=== PATIENT | female | born 1985 | race Caucasian/White ===

== ENCOUNTER 2016-12-24 05:08 | Inpatient (IN) | payer SELFPAY ==
[~2016-12-24] VITALS: Ht 165.1 cm; Wt 84.9 kg
[~2016-12-24 05:08] MED LIST: CALC600T5 PO; PREN-39 PO
[2016-12-24 06:00] VITALS: Ht 165.1 cm; Wt 84.9 kg
[2016-12-24 06:01] VITALS: BP 118/76; PULSE 90; RESP 20
[2016-12-24] MEDS: LACTATED RINGER'S 1,000 ML IV SCH ×4 (06:20→20:04)
[2016-12-24] MEDS ORDERED: METHYLERGONOVINE 0.2 MG INJ IM PRN ×2 (06:30→22:00)
[2016-12-24] MEDS ORDERED: CARBOPROST 250 MCG INJ IM PRN ×2 (06:30→22:00)
[2016-12-24] MEDS ORDERED: OXYTOCIN 30 UNITS/LR 500 ML IV SCH ×3 (06:30→12:30)
[2016-12-24] MEDS ORDERED: BUTORPHANOL 2 MG INJ IV PRN (06:30)
[2016-12-24] MEDS ORDERED: IBUPROFEN 600 MG TAB PO PRN (06:30)
[2016-12-24] MEDS ORDERED: LACTATED RINGER'S 1,000 ML IV PRN (06:30)
[2016-12-24] MEDS ORDERED: MISOPROSTOL 200 MCG TAB PR PRN ×2 (06:30→22:00)
[2016-12-24] MEDS ORDERED: AMPICILLIN 2 GM/NS (PMX) 100 ML IV ONE (06:30)
[2016-12-24] MEDS ORDERED: LIDOCAINE 1% (MPF) 30 ML INJ INJ PRN (06:30)
[2016-12-24] MEDS ORDERED: OXYTOCIN 30 UNITS/LR 500 ML IV PRN ×2 (06:30→22:00)
[2016-12-24 06:36] LABS: ADD SCAN DIFF NO
[2016-12-24 06:40] LABS: BASOPHILS % 0.3 % (0.0-2.0); EOSINOPHILS # 0.1 10^3/ul (0.0-0.5); EOSINOPHILS % 0.7 % (0.0-7.0); HEMATOCRIT 34.8 % (37.0-47.0); HEMOGLOBIN 11.4 g/dl (12.0-16.0); LYMPHOCYTES # 2.5 10^3/ul (0.8-2.9); LYMPHOCYTES % 20.3 % (15.0-51.0); MEAN CORPUSCULAR HEMOGLOBIN 27.9 pg (29.0-33.0); MEAN CORPUSCULAR HGB CONC 32.8 g/dl (32.0-37.0); MEAN CORPUSCULAR VOLUME 85.3 fl (82.0-101.0); MEAN PLATELET VOLUME 10.8 fl (7.4-10.4); MONOCYTE # 1.1 10^3/ul (0.3-0.9); MONOCYTES % 8.4 % (0.0-11.0); NEUTROPHIL # 8.5 10^3/ul (1.6-7.5); NEUTROPHILS % 68.1 % (39.0-77.0); PLATELET COUNT 215 10^3/UL (140-415); RED BLOOD COUNT 4.08 10^6/ul (4.20-5.40); RED CELL DISTRIBUTION WIDTH 14.1 % (11.5-14.5); WHITE BLOOD COUNT 12.5 10^3/ul (4.8-10.8)
[2016-12-24 06:59] LABS: INR 0.96; PROTIME 12.8 Sec (12.2-14.2)
--- NOTE | 2016-12-24 06:59 | RADRPT ---
PROCEDURE: US OB. CLINICAL INDICATION: Contractions TECHNIQUE: Multiple sonographic images of the pelvis were obtained. Transabdominal imaging only w as performed. The images were reviewed on a PACS workstation. COMPARISON: No prior studies are available for comparison. FINDINGS: There is a single live intrauterine gestation. Cardiac activity is present with 134 beats per minut e. position is cephalic. Measurements were made in order to determine age. The results are as follows: BPD = 8.89 cm HC = 30.87 cm AC = 33.29 cm FL = 6.78 cm. Estimated gestational age of approximately 35 weeks 4 days. The estimated date of delivery is 01/24/2017. The EFW = 2869 g, 31.2 %ile. The placenta is posterior. There is no evidence for an abruption or placenta previa. IMPRESSION: 1. Single live intrauterine gestation of approximately 35 weeks 4 days, by ultrasound criteria. 2. The estimated date of delivery is 01/24/2017. 3. The estimated weight is 2869 g, 31.2 %ile. RPTAT: HH .Amber Thomas MD, Date Time Electronically viewed and signed by .Amber Thomas MD, on 12/24/2016 06:59 .G/
[2016-12-24 07:00] LABS: PARTIAL THROMBOPLASTIN TIME 22.4 Sec (25.0-35.0)
--- NOTE | 2016-12-24 08:46 | TRIAGE ---
OB Triage Datetime Report Generated by CPN: 12/24/2016 08:46 Datetime: 12/24/2016 08:34 Labor Evaluation Frequency: 2-7 Monitor Mode: External Duration (sec)2399: 40-100 Quality: Moderate Pattern: Normal: <= 5 Contractions in 10 Minutes Resting Tone [place]: Relaxed Heart Rate FHR Baseline Rate: 135 Monitor Mode: External US FHR Baseline Changes: No Baseline Change Variability: Moderate 6-25 bpm Accelerations: 15X15 Decelerations: None Category: Category I Pain Assessment Pain Scale: 4 Pain Presence: Intermittent Pain Type: Contraction; Pressure Pain Location: Abdomen; Back Pain Goal: 2 Pain Relief Measures: Comfort Measures Datetime: 12/24/2016 08:13 Vaginal Exam Dilatation (cms): 1.0 Effacement (%): 70 Station: -3 Exam By: Hillary RN Datetime: 12/24/2016 07:41 Assessment Type: Admission Assessment Vaginal Bleeding: None Maternal Assessment Level of Consciousness: Fully Conscious DTR's/Clonus: DTRs 2+; No Clonus Headache: Denies Blurred Vision: No Respiratory Effort: Unlabored; Regular Rhythm; Equal Expansion Breath Sounds, Left: Clear and Equal Breath Sounds, Right: Clear and Equal Nausea/Vomiting: Denies RUQ Epigastric Pain: Denies Lower Extremities Edema: Bilateral Lower Extremities Degree: Trace Upper Extremities Edema: None Degree: None Facial Edema: None Fall Risk Assessment History of Falling: (0) No Secondary Diagnosis: (0) No Ambulatory Aid: (0) Bedrest/Nurse Assist IV Therapy: (20) Yes Gait: (0) Normal/Bedrest/Immobile Mental Status: (0) Oriented to Own Ability Fall Score: 20 Fall Risk Score Definition: No Risk: No action required Labor Evaluation Frequency: OCC Monitor Mode: External Duration (sec)2399: 40-100 Quality: Moderate Pattern: Normal: <= 5 Contractions in 10 Minutes Resting Tone [place]: Relaxed Heart Rate FHR Baseline Rate: 130 Monitor Mode: External US FHR Baseline Changes: No Baseline Change Variability: Moderate 6-25 bpm Accelerations: 15X15 Decelerations: None Category: Category I Pain Assessment Pain Scale: 2 Pain Presence: Intermittent Pain Type: Contraction; Pressure Pain Type: Contraction Pain Location: Abdomen; Back Pain Location: Abdomen Pain Goal: 2 Pain Relief Measures: Comfort Measures Datetime: 12/24/2016 07:00 Labor Evaluation Frequency: Irregular Monitor Mode: External Duration (sec)2399: 40-60 Quality: Mild Pattern: Normal: <= 5 Contractions in 10 Minutes Resting Tone [place]: Relaxed Heart Rate FHR Baseline Rate: 130 Monitor Mode: External US FHR Baseline Changes: No Baseline Change Variability: Moderate 6-25 bpm Accelerations: 15X15 Decelerations: None Category: Category I Datetime: 12/24/2016 06:00 Labor Evaluation Frequency: Irregular Monitor Mode: External Duration (sec)2399: 40-80 Quality: Mild Pattern: Normal: <= 5 Contractions in 10 Minutes Resting Tone [place]: Relaxed Heart Rate FHR Baseline Rate: 130 Monitor Mode: External US Variability: Moderate 6-25 bpm Accelerations: 15X15 Decelerations: Variable Category: Category II Datetime: 12/24/2016 05:51 Monitor Mode: External US Comments: Audible decelerations down to 80BPM. Pt repositioned on right side. Datetime: 12/24/2016 05:47 Stage of : OB Triage Datetime: 12/24/2016 05:42 Stage of : OB Triage Datetime: 12/24/2016 05:34 Vaginal Exam Dilatation (cms): 1.0 Effacement (%): 70 Station: -3 Exam By: AMBIKA Mayes Vaginal Bleeding: None Cervix, Consistency: Moderate Cervix, Position: Posterior Datetime: 12/24/2016 05:33 Stage of : OB Triage Membrane Status: Ruptured Membranes Ruptured Date/Time: 12/24/2016 03:40 Membranes Rupture Method: Spontaneous Amniotic Fluid Color: Clear Amniotic Fluid Amount: Small Amniotic Fluid Odor: None Nitrazine: Positive Datetime: 12/24/2016 05:25 Time of Arrival: 12/24/2016 07:30 EGA: 37.1 Datetime: 12/24/2016 05:24 Time of Arrival: 12/24/2016 05:00 Arrived By: Wheelchair Arrived From: Home Chief Complaint: SROM @0340 and back pain Movement: Present Contractions: Denies/Absent Rupture of Membranes: Ruptured Vaginal Bleeding: Small Vaginal Discharge: Present Abdominal Trauma: Not Applicable Patient Complaints: Back Pain Time Provider Notified: 12/24/2016 05:47 Provider Notified: Eshaghian Initial Plan: EFM x2, Nitrazine, VE Datetime: 12/24/2016 05:23 Stage of : OB Triage Assessment Type: Triage Maternal Assessment Level of Consciousness: Fully Conscious DTR's/Clonus: DTRs 2+; No Clonus Headache: Denies Blurred Vision: No Respiratory Effort: Unlabored; Regular Rhythm; Equal Expansion Breath Sounds, Left: Clear and Equal Breath Sounds, Right: Clear and Equal Nausea/Vomiting: Denies RUQ Epigastric Pain: Denies Lower Extremities Edema: Bilateral Lower Extremities Degree: Pitting Upper Extremities Edema: None Degree: None Facial Edema: None Temperature Route: Oral Fall Risk Assessment History of Falling: (0) No Secondary Diagnosis: (0) No Ambulatory Aid: (0) Bedrest/Nurse Assist IV Therapy: (0) No Gait: (0) Normal/Bedrest/Immobile Mental Status: (0) Oriented to Own Ability Fall Score: 0 Fall Risk Score Definition: No Risk: No action required Pain Assessment Pain Scale: 3 Pain Presence: Intermittent Pain Type: Cramping Pain Location: Abdomen; Back Pain Relief Measures: Comfort Measures
[2016-12-24] MEDS ORDERED: FENTAnyl 2MCG/ML-ROPIV 0.2% 100 ML ONE (09:54)
[2016-12-24] MEDS ORDERED: AMPICILLIN 1 GM/NS (PMX) 50 ML IV SCH (10:30)
[2016-12-24] MEDS ORDERED: NALOXONE (0.4 MG/ML) INJ IV PRN (11:00)
[2016-12-24] MEDS ORDERED: ACETAMINOPHEN 325 MG TAB PO PRN (12:30)
[2016-12-24] MEDS: FENTAnyl 2MCG/ML-ROPIV 0.2% 100 ML BAG EPI SCH ×2 (12:32→20:07)
[2016-12-24 15:40] LABS: BARBITURATES Negative (NEGATIVE); BENZODIAZEPINES Negative (NEGATIVE); CANNABINOIDS Negative (NEGATIVE); COCAINE Negative (NEGATIVE); OPIATES Negative (NEGATIVE)
--- NOTE | 2016-12-24 21:41 | LDN ---
Date/Time of Note Date/Time of Note DATE: 12/24/16 TIME: 21:39 Delivery Summary Weeks of Gestation 37 Placenta Delivered: Spontaneously Meconium: none Episiotomy: Yes Laceration repair: rmle repair with 2-0 and 3-0 chromic Anesthesia type: Epidural Estimated blood loss: 200 Sponge & Needle done & correct: Yes All needle counts correct: Yes Any foreign bodies felt in the: No Problems: Infant Delivery Information Sex Infant Sex: female Apgars 1 Minute: 9 5 Minute: 9 Suctioning Nose & mouth suctioned at jian: No Delee suction performed: No Umbilical Cord Umbilical cord with: 3 Vessels Cord presentations: no nuchal cord Cord Blood was obtained: Yes KATE LAU MD Dec 24, 2016 21:41
--- NOTE | 2016-12-24 21:44 | HP ---
Date/Time of Note Date/Time of Note DATE: 12/24/16 TIME: 21:41 OB - History Hx of Present Chief Complaint: ctx leaking fluid : 2 Para: 1 Care: Good Care Ultrasounds: Normal mid trimester US Obstetrical Complications: None Medical Complications: None Other Concerns: X 1 vaginal delivery Past Family/Social History * Past Medical, Surgical, Family and Obstetric Histories reviewed from chart. OB Admission Exam Vital Signs Vital Signs Vital Signs Date Time Temp Pulse Resp B/P Pulse Ox O2 Delivery O2 Flow Rate FiO2 12/24/16 06:01 97.8 90 20 118/76 Room Air Physical Exam HEENT: WNL Heart: Rhythm Normal Lungs: Clear, Equal Abdomen: WNL Extremities: Normal Reflexes: Normal Cervical Dilatation: 2cm Effacement: 50% Station: -3 Membranes: Ruptured Amniotic Fluid: Clear Intensity: Mild Last 72 hours Lab Results CBC & BMP 12/24/16 06:25 OB Assessment/Plan Reason for admission: rupture of membranes Plan: Induction Induction Method: per Pitocin Protocol KATE LAU MD Dec 24, 2016 21:44
[2016-12-24] MEDS ORDERED: OXYCODONE/ASPIRIN (4.88/325) TAB PO PRN ×2 (22:00)
[2016-12-24] MEDS ORDERED: LANOLIN 7 GM TUBE TOP PRN (22:00)
[2016-12-24] MEDS ORDERED: ZOLPIDEM 5 MG TAB PO PRN (22:00)
[2016-12-24] MEDS ORDERED: DIPHENHYDRAMINE 25 MG CAP PO PRN (22:00)
[2016-12-24] MEDS ORDERED: ONDANSETRON 4 MG TAB PO PRN (22:00)
[2016-12-24] MEDS ORDERED: BENZOCAINE 20% 56 ML SPRAY TOP PRN (22:00)
[2016-12-24] MEDS ORDERED: DIBUCAINE 1% 30 GM OINT PR PRN (22:00)
[2016-12-24] MEDS ORDERED: SENNA/DOCUSATE NA (8.6MG/50MG) TAB PO PRN (22:00)
[2016-12-24] MEDS ORDERED: ONDANSETRON 4 MG INJ IV PRN (22:00)
[2016-12-24] MEDS ORDERED: WITCH HAZEL/GLYCERIN PAD PR PRN (22:00)
[2016-12-24] MEDS: IBUPROFEN 600 MG TAB PO SCH (23:33)
[2016-12-25] VITALS: BP 117/58; PULSE 96; RESP 18
[2016-12-25 04:00] VITALS: BP 117/53; PULSE 101; RESP 18
[2016-12-25] MEDS: IBUPROFEN 600 MG TAB PO SCH ×4 (06:00→23:54)
[2016-12-25] MEDS ORDERED: SENNA/DOCUSATE NA (8.6MG/50MG) TAB PO SCH (09:00)
[2016-12-25] MEDS: MAGNESIUM HYDROXIDE 30ML CUP PO SCH ×2 (09:05→21:00)
[2016-12-25 09:06] VITALS: BP 124/80; PULSE 84; RESP 18
[2016-12-25] MEDS: LACTATED RINGER'S 1,000 ML IV* SCH ×2 (09:07→13:44)
[2016-12-25 11:20] LABS: ADD SCAN DIFF NO
[2016-12-25 11:27] LABS: BASOPHILS % 0.3 % (0.0-2.0); EOSINOPHILS % 0.2 % (0.0-7.0); HEMATOCRIT 32.9 % (37.0-47.0); HEMOGLOBIN 10.9 g/dl (12.0-16.0); LYMPHOCYTES % 12.6 % (15.0-51.0); MEAN CORPUSCULAR HEMOGLOBIN 28.4 pg (29.0-33.0); MEAN CORPUSCULAR HGB CONC 33.1 g/dl (32.0-37.0); MEAN CORPUSCULAR VOLUME 85.7 fl (82.0-101.0); MEAN PLATELET VOLUME 10.7 fl (7.4-10.4); MONOCYTE # 1.1 10^3/ul (0.3-0.9); MONOCYTES % 7.3 % (0.0-11.0); NEUTROPHIL # 12.3 10^3/ul (1.6-7.5); NEUTROPHILS % 78.3 % (39.0-77.0); PLATELET COUNT 199 10^3/UL (140-415); RED BLOOD COUNT 3.84 10^6/ul (4.20-5.40); RED CELL DISTRIBUTION WIDTH 14.3 % (11.5-14.5); WHITE BLOOD COUNT 15.7 10^3/ul (4.8-10.8)
[2016-12-25 12:08] VITALS: BP 110/53; PULSE 86; RESP 18
[2016-12-25 15:30] VITALS: BP 102/53; PULSE 77; RESP 18
[2016-12-25 19:30] VITALS: BP 129/79; PULSE 89; RESP 19
--- NOTE | 2016-12-25 19:50 | PD.PPDC ---
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
--- NOTE | 2016-12-25 19:53 | DS ---
Date/Time of Note Date/Time of Note DATE: 12/25/16 TIME: 19:51 Obstetrical Discharge Record Final Diagnosis Final Diagnosis: Term delivered Other Final Diagnosis iup at term, premature rupture of membrane Vaginal Delivery Obstetrical Delivery: Episiotomy, Repaired Complications Augmentation: Yes Induction: No Rupture of Membranes: No Gestational Age at Rupture 37 Condition on Discharge Physical Assessment Voiding: Yes Bowel Movement: Yes Breast: Soft, non-tender, Filling Fundus: Firm Calf Tenderness: No Patient Condition: Fair KATE LAU MD Dec 25, 2016 19:53
[2016-12-26 03:40] VITALS: BP 112/68; PULSE 67; RESP 19
[2016-12-26] MEDS: IBUPROFEN 600 MG TAB PO SCH ×3 (05:49→18:00)
[2016-12-26 08:00] VITALS: BP 112/60; PULSE 73; RESP 18
[2016-12-26] MEDS: MAGNESIUM HYDROXIDE 30ML CUP PO SCH (09:00)
[2016-12-26 12:06] LABS: RUBELLA ANTIBODY - IGG 4.44 index
== END 2016-12-26 18:30 | disposition home or self-care (01) | DRG 775 ==
LOC: OBT 05:08 → L-D 05:10 → OBT 05:47 → L-D 05:47 → PP1 23:37
PROVIDERS: ADMIT Obstetrics & Gynecology; ATTEND Obstetrics & Gynecology
PROC: 10E0XZZ Delivery of Products of Conception, External Approach (ICD-10-PCS; principal; 2016-12-24)
PROC: 0W8NXZZ Division of Female Perineum, External Approach (ICD-10-PCS; 2016-12-24)
DX: O75.89 Other specified complications of labor and delivery (principal); Z37.0 Single live birth; Z3A.37 37 weeks gestation of pregnancy
CPT/HCPCS: 36415; 62319; 76815; 80307; 85025; 85610; 85730; 86592; 86762; 86900; 86901; 87340; 99464; G0463; J2590; J3010; J7120